=== PATIENT | female | born 1960 | race Caucasian/White ===

== ENCOUNTER → 2024-05-15 10:37 | Outpatient (BNVA) | payer BC, SELFPAY | PROVIDERS: Family Provider Nurse Practitioner; PCP Nurse Practitioner; Visit Provider Specialist | DX: S89.92XA Unspecified injury of left lower leg, initial encounter; Z46.89 Encounter for fitting and adjustment of other specified devices; X58.XXXA Exposure to other specified factors, initial encounter | CPT/HCPCS: 73560; 73565 ==

== ENCOUNTER 2024-05-15 12:15 | Outpatient (CLI) | payer BC, SELFPAY | END 2024-05-15 12:16 | disposition home or self-care (01) | LOC: SPT 12:16 | PROVIDERS: Family Provider Nurse Practitioner; PCP Nurse Practitioner; Visit Provider Specialist | DX: Z46.89 Encounter for fitting and adjustment of other specified devices (principal); S89.92XA Unspecified injury of left lower leg, initial encounter; X58.XXXA Exposure to other specified factors, initial encounter | CPT/HCPCS: L1851 ==

== ENCOUNTER → 2024-06-21 15:10 | Outpatient (BNVA) | payer BC, SELFPAY | PROVIDERS: Family Provider Nurse Practitioner; PCP Nurse Practitioner; Visit Provider Internal Medicine Cardiovascular Disease | DX: R07.9 Chest pain, unspecified (principal) | CPT/HCPCS: 93005 ==

== ENCOUNTER 2024-07-17 13:28 | Outpatient (CLI) | payer BC, SELFPAY ==
--- NOTE | 2024-07-17 14:00 | CT_ITS ---
WS: [id number] CT LEFT KNEE, NONCONTRAST [facility] TECHNIQUE: Noncontrast CT of the LEFT knee to include the LEFT hip and ankle. CLINICAL INFORMATION: per [facility] protocol DLP: 1030.[address] scans at [facility] use at least one of these dose optimization techniques: automated exposure control; mA and/or kV adjustment per patient size (includes targeted exams where dose is matched to clinical indication); or iterative reconstruction. FINDINGS: Advanced tricompartment arthritis LEFT knee. Hypertrophic changes along the joint line. Hypertrophic patella. Distal quadriceps tendon enthesophyte. Osteopenia. Joint arthritis sacroiliac joints with sclerosis. Fat-containing LEFT inguinal hernia with LEFT inguinal hernia repair. Tubal ligation clips. Small suprapatellar effusion. CT/CT knee LT [facility] [id number] IMPRESSION: Images obtained for preoperative purposes.
== END 2024-07-17 13:29 | disposition home or self-care (01) ==
PROVIDERS: Family Provider Nurse Practitioner; PCP Nurse Practitioner; Visit Provider Specialist
DX: M17.12 Unilateral primary osteoarthritis, left knee (principal); R93.6 Abnormal findings on diagnostic imaging of limbs; M76.9 Unspecified enthesopathy, lower limb, excluding foot; M46.1 Sacroiliitis, not elsewhere classified; M85.88 Other specified disorders of bone density and structure, other site; K40.90 Unilateral inguinal hernia, without obstruction or gangrene, not specified as recurrent
CPT/HCPCS: 73700

== ENCOUNTER → 2024-07-31 09:53 | Outpatient (BNVA) | payer BC, SELFPAY | PROVIDERS: PCP Nurse Practitioner; Visit Provider Family Medicine | DX: Z01.818 Encounter for other preprocedural examination (principal) | CPT/HCPCS: 80053; 81003; 83036; 85025 ==

== ENCOUNTER 2024-08-01 14:09 | Observation (INO) | payer BC, SELFPAY ==
[2024-08-01] VITALS (20 sets, daily range): BP systolic 112–163; BP diastolic 63–94; PULSE 68–80; RESP 15–20; TEMP 36.6–36.8; O2SAT 92–100; BMI 29.9
[2024-08-01 10:40] LABS: Glucose Point of Care 126 mg/dL (70-110)
[2024-08-01 10:43] LABS: Bacteria Urine None Seen /hpf; RBC Urine 0-2 /hpf (0-2); Squamous Epithelial Cell Urine 0-5 /hpf (0-5); WBC Urine 0-5 /hpf (0-5)
[2024-08-01 10:47] LABS: Bilirubin Urine Neg (Negative); Blood Urine Neg (Negative); Glucose Urine UA Norm (Normal); Ketones Urine Negative (Negative); Leukocyte Esterase Urine Negative (Negative); Nitrate Urine Negative (Negative); Protein Urine Neg (Negative); Specific Gravity, Urine 1.025 (1.005-1.030); Urine Appearance Clear (CLEAR); Urine Color Yellow (Yellow); Urobilinogen Urine Neg (Negative); pH Urine 5 (5-7)
--- NOTE | 2024-08-01 11:11 | W.PM.OPSUD ---
Surgery/Procedure H&P Update DATE OF PROCEDURE: August 01, 2024 DATE H&P PERFORMED: 07/25/24 H&P UPDATE INFORMATION: I have reviewed H&P completed within last 30 days, I have examined patient prior to procedure, No changes to prior documentation, H&P is in [facility] EMR on date indicated and Risks and benefits of the procedure reviewed PREOP DIAGNOSIS: Primary osteoarthritis left knee PLANNED PROCEDURE: Operation Date: 08/01/24 12:10 Proposed Procedures p Simon Robot Total Knee Arthroplasty(Left) - María Hammer MD Related Problem List Diagnoses (1) Primary osteoarthritis of left knee:
[2024-08-01] MEDS: sodium chloride 0.9% 1,000 ML 30 ML IV (11:45)
[2024-08-01] MEDS: acetaminophen 1,000 MG/100 ML PIGGYBACK 400 MG IV ×2 (11:48→17:25)
--- NOTE | 2024-08-01 12:16 | ANES.PREANE2 ---
Pre-Anesthetic Assessment Height/Weight: Height 5 ft 8 in Weight 197 lb O2 Del Method Room Air 08/01/24 10:08 Preop Diagnosis: Primary osteoarthritis left knee Operation Date: 08/01/24 12:10 Proposed Procedures p Simon Robot Total Knee Arthroplasty(Left) - María Hammer MD Was Beta Cecil taken within 24 hours: N/A Was Clonidine taken within 24 hours: N/A Last intake: Intake Last Liquid Date 07/31/24 Last Liquid Time 22:00 Last Solid Date 07/31/24 Last Solid Time 19:00 Social Tobacco and No tobacco Exam alert, oriented x 3, clear to auscultation bilaterally and regular rate & rhythm Airway Submandibular: within normal limits Cervical ROM: within normal limits Mallampati: Class III Comments: Comments: Edentulous. Green plaque on tongue Anesthetic Plan ASA status: 3 Anesthesia: General Other: No prior issues with anesthesia in the past NPO since yesterday History of MINOR without CPAP Current smoker CAD and CHF. Follows with cardiology. Stents placed 2005. Clear heart cath 2 years ago Patient has a loop recorder in place but it is not functional Labs 07/31/2024 reviewed and acceptable for procedure EKG sinus rhythm Plan for general anesthesia Medications/Allergies Home Medications ?Medication ?Instructions ?Recorded ?Confirmed ?Last Taken ?Type amitriptyline 50 mg tablet 50 mg PO DAILY 05/15/24 08/01/24 07/31/24 History atorvastatin 80 mg tablet 80 mg PO DAILY 05/15/24 08/01/24 07/31/24 History eszopiclone 2 mg tablet (Lunesta) 2 mg PO DAILY 05/15/24 08/01/24 07/31/24 History levothyroxine 88 mcg tablet 88 mcg PO DAILY 05/15/24 08/01/24 07/31/24 History (Levo-T) lidocaine 4 % topical patch 1 patch topical DAILY PRN Pain 05/15/24 07/31/24 07/29/24 History polysaccharide iron complex 150 mg 150 mg PO DAILY 05/15/24 08/01/24 07/11/24 History iron capsule potassium chloride 20 mEq 20 meq PO BID 05/15/24 08/01/24 07/31/24 History tablet,extended release trazodone 100 mg tablet 100 mg PO DAILY 05/15/24 08/01/24 07/31/24 History medial retail security professional brace, left #1 ea 05/16/24 06/21/24 Unknown Rx alprazolam 0.5 mg tablet 0.5 mg PO TID PRN Anxiety 06/21/24 07/31/24 07/30/24 History aspirin 81 mg tablet,delayed 324 mg PO DAILY 06/21/24 07/31/24 07/24/24 History release (Adult Aspirin Regimen) clopidogrel 75 mg tablet 75 mg PO DAILY #90 tabs 06/21/24 07/31/24 07/26/24 Rx diltiazem HCl 120 mg 120 mg PO DAILY #90 caps 06/21/24 08/01/24 07/31/24 Rx capsule,extended release 24 hr furosemide 20 mg tablet 20 mg PO BID PRN swelling 06/21/24 08/01/24 07/31/24 History nitroglycerin 0.4 mg sublingual 0.4 mg sublingual Q5M PRN chest 06/21/24 07/31/24 Unknown Rx tablet pain #25 tabs nitroglycerin 0.4 mg/hr 1 patch transdermal DAILY #30 ea 06/21/24 08/01/24 07/31/24 Rx transdermal 24 hour patch (Nitro-Dur) omeprazole 20 mg capsule,delayed 20 mg PO DAILY 06/21/24 08/01/24 07/31/24 History release empagliflozin 10 mg tablet 10 mg PO DAILY #90 tabs 06/28/24 08/01/24 06/03/24 Rx Allergies Allergy/AdvReac Type Severity Reaction Status Date / Time celecoxib (From Celebrex) Allergy Intermediate rash Verified 08/01/24 10:14 ciprofloxacin (From Cipro) Allergy Intermediate rash Verified 08/01/24 10:14 ketorolac Allergy Intermediate rash Verified 08/01/24 10:14 pregabalin (From Lyrica) Allergy Intermediate Stuttering Verified 08/01/24 10:14 rubber, unspecified Allergy Intermediate blisters Verified 08/01/24 10:14 sulfamethoxazole (From Allergy Intermediate rash Verified 08/01/24 10:14 Sulfamethoxazole-Trimethoprim) tramadol Allergy Intermediate blisters Verified 08/01/24 10:14 trimethoprim (From Allergy Intermediate rash Verified 08/01/24 10:14 Sulfamethoxazole-Trimethoprim) adhesive tape Allergy Mild ADR-Itching Verified 08/01/24 10:14 nalbuphine Allergy Mild ADR-Itching Verified 08/01/24 10:14 iodine Allergy blisters Verified 08/01/24 10:14 mildew prevention chemicals Allergy Intermediate blisters Uncoded 08/01/24 10:14 dark dyes Allergy blisters Uncoded 08/01/24 10:14 Current Medications Generic Name Dose Route Start Last Admin Trade Name Freq PRN Reason Stop Dose Admin Sodium Chloride 1,000 mls @ 30 mls/hr 08/01/24 11:00 08/01/24 11:45 Sodium Chloride 0.9% IV 08/02/24 10:59 30 mls/hr .Q24H [place] Administration PFSH Anesthesia Medical History CHF (congestive heart failure) COPD (chronic obstructive pulmonary disease) CAD (coronary artery disease) of artery bypass graft Family History Father CAD (coronary artery disease) Diabetes Sister CAD (coronary artery disease) Mother Cancer Social History Smoking and tobacco/nicotine status: current every day tobacco/nicotine user e-cigarettes Alcohol intake: current Data Anesthesia Urine 08/01/24 Range/Units 10:08 Urine Color Yellow (Yellow) Urine Appearance Clear (CLEAR) Urine pH 5 (5-7) Ur Specific [place] 1.025 (1.005-1.030) Urine Protein Neg (Negative) Urine Glucose (UA) Norm (Normal) Urine Ketones Negative (Negative) Urine Nitrate Negative (Negative) Urine Bilirubin Neg (Negative) Ur Leukocyte Esterase Negative (Negative) Urine RBC 0-2 (0-2) /hpf Urine WBC 0-5 (0-5) /hpf Cardiac Studies: No Data to Display
[2024-08-01] MEDS: ceFAZolin 2,000 mg SDV 2000 MG IVP ×2 (12:35→21:25)
[2024-08-01] MEDS: tranexamic acid 1,000 mg/10mL SDV 1000 MG IV (13:03)
[2024-08-01] MEDS: sodium chloride 0.9% 50 mL Bag XX (13:33)
[2024-08-01] MEDS: BUPivacaine 0.5% INJ 30 mL 20 ML INJECTION (13:34)
[2024-08-01] MEDS: VANCOMYCIN ADD-Vantage 1,000 MG VIAL 1000 MG XX (13:35)
[2024-08-01] MEDS: BUPivacaine liposome 13.3 mg/mL SDV 20 mL 266 MG INFILTRATI (13:35)
[2024-08-01] MEDS: ceFAZolin 2,000 mg SDV 2000 MG IRRIGATION (13:36)
--- NOTE | 2024-08-01 14:57 | PM.OP ---
Operative Report Date of procedure: August 01, 2024 Pre-op diagnosis: Primary osteoarthritis left knee Post-op diagnosis: Primary osteoarthritis left knee Post-op findings: Severe degenerative osteoarthritis left knee with varus deformity Procedure done: Left total knee arthroplasty with Simon guidance Implants: The [place] total knee system with a size 3 triathlon beaded cruciate retaining femur left, a triathlon titanium tibial component size 3 beaded, a triathlon X3 tibial bearing CS insert size 3 X 9 mm and a beaded triathlon titanium asymmetric patella size 32 x 10 mm Specimens removed/disposition: Bone, disposed of Pathology: None Surgeon: María Hammer MD Sort Line Worker: Tali Chou, nurse practitioner who services were required for retraction, exposure, closure, and completion of the surgical procedure Anesthesia: General (Intubated, ASA 3) Estimated blood loss (mL): 250 Tourniquet time (min): 0 (Not utilized) IV fluids (mL): 1,500 Urine output (mL): 250 Complications: None Findings: Severe degenerative osteoarthritis with varus compartment large osteophyte Condition: stable Disposition: PACU (Then admit under observation status for pain management and rehabilitation) Brief History: This 63-year-old woman presented to the clinic complaining of severe left knee pain. She had x-ray findings of significant degenerative osteoarthritis and worsening pain and symptoms. She also had limitations in her activities of daily living. After discussion, the patient wished to proceed with left total knee arthroplasty. Risks and complications were explained to her. Consents were signed and questions were answered. Procedure: The patient was brought to the operating theater, and after undergoing adequate general anesthesia intubated, ASA 3, the left lower extremity was prepped with ChloraPrep and draped in usual fashion following placement of a tourniquet high on the leg. The leg was then draped free. Tourniquet was placed on the leg but was not elevated throughout the surgical procedure. Following exposure of the site of surgery, a surgical pause was performed. At the time of the surgical pause, we confirmed the site and side of surgery. Additionally, we confirmed the appropriate and timely administration of preoperative antibiotics, Ancef 2 g. Tranexamic acid 1 g was given preoperatively and will be given again on the floor for 1 dose postoperatively. The availability of equipment was confirmed, and the patient's identity was verbalized as well. Following the surgical pause, an incision was made centering over the patella continuing proximally and distally as necessary to allow access to the knee joint. Dissection continued through skin and soft tissues using a scalpel. Hemostasis was obtained using electrocautery. The skin incision was followed by a median parapatellar arthrotomy. The leg was extended and the patella was able to be displaced laterally. Appropriate arrays and markers were placed in appropriate position for use of the [facility]. Preoperative planning had been accomplished and was discussed in detail with the [facility] cash application representative. Intraoperative mapping of the femur and tibia was accomplished after the arrays were placed. Once we had accomplished the Simon mapping, we began the appropriate resections for placement of the prosthesis. The plan was for a cruciate retaining left total knee arthroplasty. Once appropriate mapping had been accomplished retraction was established using manual retraction by the [facility] leg positioner and retractors. The knee was evaluated. There was eburnation particularly of the medial femoral condyle.? There were large osteophytes circumferentially about the trochlear groove as well as the patella and medial tibial plateau.? After balancing the knee within the Simon program, the appropriate bone resection was accomplished. Initial resection was accomplished on the tibia followed by appropriate resections on the femur. We had performed a medial release at the beginning of the procedure to allow for placement of the array. Proximal tibia was evaluated and it was felt that appropriate size for the tibia was a size 3, and appropriate femoral size was a size 3. A trial reduction was accomplished after osteophytes had been removed, the medial and lateral meniscus were excised, and bone cuts had been accomplished as above. We had removed the anterior cruciate ligament at the beginning of the case and preserved the posterior cruciate ligament. Trial reduction was accomplished with a size 3 femoral cruciate retaining component and a size 3 tibia with a CS tibial bearing insert which was 9 mm in thickness. Initial trial reduction demonstrated that the knee had excellent stability, full extension, and full flexion. The patient was hyperextended preoperatively, but she had full extension at the time of this implant. The trial components were removed after the femur had been drilled. Prior to removal of the tibial tray which had been pinned in position with appropriate rotation as determined by the Simon plan, we broached the tibia. Subsequently, the 4 drill holes were made for the prosthetic component. All trial components had been removed, and the wound was irrigated. Plans were made for insertion of the prosthetic components. Prior to this, the patella was manually prepared. After resection of the articular surface freehand due to the thinness of the patella, it was measured and measured a 32 mm patella. We resected the articular surface of the patella utilizing the appropriate jig, and patellar height was restored with the patellar component. Once again, the wound was irrigated. The Tritanium tibia was impacted into position.? The beaded femur was then impacted into position in a cementless fashion. The CS tibial insert was placed prior to placement of the femoral component. The patella was pressed into position with a patellar clamp.? Exparel was injected prior to placement of the components. The knee was then copiously irrigated with betadine and saline and suctioned dry. Attention was then directed to closure. Closure was accomplished with 0 Vicryl in the fascial tissues followed by a running #1 strata fix 1 from proximal to distal and 1 from distal to proximal.? This was followed by Surgiflo and vancomycin powder. Subcutaneous tissues were closed with 2-0 Monocryl strata fix, and the skin was closed in a running subcuticular fashion with 3-0 Monocryl strata fix.? A sterile dressing was then placed consisting of Dermabond Prineo, OpSite, sterile soft roll including over the foot, and an Santiago wrap. The patient was returned the Recovery Room in a satisfactory condition. X-rays were obtained and reviewed there.? The patient will be discharged to the floor for postoperative rehabilitation and pain management. Related Problem List Diagnoses (1) Primary osteoarthritis of left knee:
[2024-08-01] MEDS: ondansetron 2 mg/ML SDV 2 mL 4 MG IVP (15:22)
--- NOTE | 2024-08-01 15:24 | XR_ITS ---
WS: [id number] Exam: XR knee LT 1-2V [id number] Date/Time of Exam: 08/01/2024 3:24 PM Reason For Exam: Status post total knee arthroplasty Total knee arthroplasty is in place in excellent position. Postoperative changes in the soft tissues. XR/XR knee LT 1-2V 39120 IMPRESSION: 1. Total knee replacement in excellent position.
[2024-08-01] MEDS: meperidine 50 mg/mL INJ 12.5 MG IVP (15:35)
[2024-08-01] MEDS: diphenhydrAMINE 50 mg/mL SDV 1mL 12.5 MG IVP (15:57)
--- NOTE | 2024-08-01 16:09 | ANE.PACU2 ---
Inpatient post-anesthesia follow up: Airway intact: Yes Vital signs: Temperature 97.5 F Pulse Rate 79 Respiratory Rate 18 Blood Pressure 122/75 Pulse Oximetry 96 Oxygen Delivery Me thod Room Air Oxygen Flow Rate 2 Fraction of Inspir ed Oxygen Hydration adequate: Yes Nausea and vomiting: No Pain level: 1 Mental status: Baseline
[2024-08-01 16:54] LABS: Glucose Point of Care 151 mg/dL (70-110)
[2024-08-01] MEDS: sennosides-docusate Tablet 2 TAB PO (17:23)
[2024-08-01] MEDS: potassium chloride ER 20 mEq Tablet PO (17:23)
[2024-08-01] MEDS: calcium carbonate 500 mg Chew Tablet 1000 MG PO (17:23)
[2024-08-01] MEDS: iron polysaccharide complex 150 mg Capsule PO (17:23)
[2024-08-01] MEDS: chlorhexidine gluconate 0.12% Btl 473 mL 30 ML MUCOUS MEM ×2 (17:24→21:26)
[2024-08-01] MEDS: oxyCODONE 5 mg IR Tab/Cap PO ×2 (17:24→21:24)
[2024-08-01] MEDS: mupirocin oint 22 gm 1 APPLIC NASAL (17:25)
[2024-08-01 20:56] LABS: Glucose Point of Care 218 mg/dL (70-110)
[2024-08-01] MEDS: FUROsemide 20 mg Tablet PO (23:55)
[2024-08-02] VITALS (8 sets, daily range): BP systolic 111–148; BP diastolic 65–75; PULSE 79–101; RESP 17–18; TEMP 36.4–36.8; O2SAT 96–97
[2024-08-02] MEDS: acetaminophen 1,000 MG/100 ML PIGGYBACK 400 MG IV ×2 (00:09→08:45)
[2024-08-02] MEDS: oxyCODONE 5 mg IR Tab/Cap PO ×3 (01:27→13:14)
[2024-08-02] MEDS: ondansetron 2 mg/ML SDV 2 mL 4 MG IVP (01:32)
[2024-08-02 04:56] LABS: Basophils % 0.2 %; Hematocrit 28.8 % (36-47); Lymphocytes # 1.1 10^3/uL (0.8-4.8); Mean Corpuscular HGB Conc 30.9 g/dL (30-55); Mean Corpuscular Hemoglobin 25.4 pg (27-33); Mean Corpuscular Volume 82.3 fl (85-98); Mean Platelet Volume 10.3 fL (7.4-10.4); Monocytes % 7.3 %; Neutrophils % 84.2 %; Nucleated Red Blood Cells % 0 %; Platelet Count 300 10^3/cmm (157-399); Red Cell Distribution Width 13.2 % (12.1-15.1); White Blood Count 14.13 10^3/uL (3.29-11.43)
[2024-08-02 05:21] LABS: Anion Gap 16.3 (5-19); Blood Urea Nitrogen 12 mg/dL (8-23); Calcium 8.7 mg/dL (8.5-10.5); Carbon Dioxide 20 mmol/L (22-29); Chloride 105 mmol/L (98-107); Creatinine Clr Calc Pharmacy 89.0317; Glomerular Filtration Rate 72.7 mL/min (90-130); Glucose 161 mg/dL (65-115); Osmolality Calculated 287 mOsm/kg (285-295); Potassium 4.3 mmol/L (3.5-5.1); Sodium 137 mmol/L (136-145)
[2024-08-02] MEDS: metoclopramide 5 mg/mL SDV 2 mL 10 MG IV (05:30)
[2024-08-02] MEDS: ceFAZolin 2,000 mg SDV 2000 MG IVP ×2 (05:31→13:15)
[2024-08-02 06:30] LABS: Glucose Point of Care 147 mg/dL (70-110)
[2024-08-02] MEDS: potassium chloride ER 20 mEq Tablet PO (08:44)
[2024-08-02] MEDS: levothyroxine 88 mcg Tablet PO (08:44)
[2024-08-02] MEDS: trazodone 100 mg Tablet PO (08:44)
[2024-08-02] MEDS: dilTIAZem ER (24HR) 120 mg Capsule PO (08:44)
[2024-08-02] MEDS: pantoprazole DR 40 mg Tablet PO (08:44)
[2024-08-02] MEDS: cholecalciferol (vitamin D3) 1,000 unit Tablet 1000 UNIT PO (08:44)
[2024-08-02] MEDS: iron polysaccharide complex 150 mg Capsule PO (08:44)
[2024-08-02] MEDS: atorvastatin 40 mg Tablet 80 MG PO (08:44)
[2024-08-02] MEDS: calcium carbonate 500 mg Chew Tablet 1000 MG PO (08:44)
[2024-08-02] MEDS: amitriptyline 25 mg Tablet 50 MG PO (08:44)
[2024-08-02] MEDS: sennosides-docusate Tablet 2 TAB PO (08:45)
[2024-08-02] MEDS: aspirin 81 mg EC Tablet 324 MG PO (08:45)
[2024-08-02] MEDS: clopidogrel 75 mg Tablet PO (08:45)
[2024-08-02] MEDS: multivitamin therapeutic Tablet 1 TAB PO (08:45)
[2024-08-02] MEDS: chlorhexidine gluconate 0.12% Btl 473 mL 30 ML MUCOUS MEM ×2 (08:46→13:16)
[2024-08-02] MEDS: mupirocin oint 22 gm 1 APPLIC NASAL (08:46)
--- NOTE | 2024-08-02 09:33 | PC.CHAP ---
Pastoral Care Encounter/Spiritual Assessment Type of Contact [] Declined bog cutter visit [] Patient/Family/Request visit [] Outpatient visit [] Follow-up visit [] Physician referral [] Code/Alert [x] Routine visit [] Staff referral [] Actively dying [] Patient sleeping [] Family support [] [] Out of room [] Palliative care [] [] Receiving care in room [] Pre-surgical visit [] Trauma [] Long length of stay [] ICU visit [] Other: Relational/Emotional Strength [x] Patient feels connected with others/family/visitors/staff [] Distress [] Loneliness/isolation [] Abandonment Spirituality of Patient [x] Person of Maisha [] Attends Congregation of their Maisha [x] Believes in Prayer [] Reads Bible or Hoahaoism materials [] There are Spiritual issues to be addressed [employer] Interventions [x] Prayer [x] Active listening [] Non-anxious presence [x] Spiritual/emotional support [] Crisis/trauma care [] Spiritual counseling [] Bereavement support [] Provided bereavement packet [] Provided Bible/devotional materials [] Provided toy/stuffed animal, coloring book to patient or family member [] Provided Communion [] Anointing/[place] [] Salvation [x] Completed spiritual assessment [] Other: Impact on Illness or Injury [] Angry [] Fearful [] Anxious [] Often cries [] Exhaustion [] Unable to work [] Unable to attend latter-day [] Unable to walk/stand [] Unable to read [] Unable to drive [] Unable to eat/drink [] Unable to sleep [] Unable to be with family [] Patient intubated [] Other: Summary Time spent with patient 5 min
[2024-08-02 10:57] LABS: Glucose Point of Care 239 mg/dL (70-110)
--- NOTE | 2024-08-02 13:07 | P.DS_ITS ---
Discharge Providers Date of Admission: 08/01/24 14:09 Date of Discharge: August 02, 2024 Attending Provider at Admission: María Hammer MD Attending Provider at Discharge: María Hammer MD Primary Care Provider: Rolando Wilder MD Diagnoses at Discharge Discharge Diagnosis (1) Primary osteoarthritis of left knee: Status: Acute (2) Status post total left knee replacement not using cement: Status: Acute Permanent problem details: Date of procedure: August 01, 2024 Diagnosis: Primary osteoarthritis left knee Procedure done: Left total knee arthroplasty with Simon guidance Implants: The [place] total knee system with a size 3 triathlon beaded cruciate retaining femur left, a triathlon titanium tibial component size 3 beaded, a triathlon X3 tibial bearing CS insert size 3 X 9 mm and a beaded triathlon titanium asymmetric patella size 32 x 10 mm Reason for Visit Reason for Visit: M17.12 Brief History: This 63-year-old woman presented to the clinic complaining of severe left knee pain. She had x-ray findings of significant degenerative osteoarthritis and worsening pain and symptoms. She also had limitations in her activities of daily living. After discussion, the patient wished to proceed with left total knee arthroplasty. Risks and complications were explained to her. Consents were signed and questions were answered. Hospital Course Hospital Course Patient was admitted under observation status following left total knee arthroplasty. Her postoperative course was uneventful. She worked with physical therapy and was felt safe for discharge to home. Dressings were removed, there is minimal ecchymosis and no evidence of DVT. The OpSite dressing was left in place. The patient was felt to be independent and safe and will be discharged home to follow-up with me in the office as scheduled. Physical Exam Const: COMMON NORMALS: no acute distress, average body habitus, patient oriented x3 and alert GENERAL APPEARANCE: cooperative and comfortable ORIENTATION/CONSCIOUSNESS: Yes awake HENMT: COMMON NORMALS: normocephalic and atraumatic HEAD & SCALP: normocephalic and atraumatic Eye: GENERAL EYE: appearance normal, both eyes and all related structures Chest: COMMONS NORMALS: normal inspection of the chest Resp: COMMON NORMALS: normal respiratory effort EFFORT & INSPECTION: Yes able to speak in complete sentences and Yes symmetric chest movement Extremity: LEFT LOWER EXTREMITY: Yes knee joint (Large outer dressing removed. Underdressing dry and intact) Left knee: Yes inspection (Minimal to no ecchymosis), Yes palpation (Minimal discomfort), Yes ROM (Not evaluated) and Yes neurovascular exam (Intact distally with no evidence of DVT) Neuro: COMMON NORMALS: patient oriented x3 SENSORIUM/ORIENTATION: Yes alert Psych: COMMON NORMALS: mental status grossly normal APPEARANCE: Yes grossly normal ATTITUDE: Yes calm and Yes engaged ATTENTION/CONCENTRATION: Yes attention grossly intact Skin: COMMON NORMALS: no rashes or lesions noted GENERAL SKIN EXAM: no rashes or lesions noted Urinary Catheter Management: Mack: Cath Placed During This Visit: yes, but has since been removed by the nurse Reason for Continuing Indwelling Catheter: Decision to DC Catheter Urinary Catheter Date of Insertion: 08/01/24 Urinary Catheter Time of Insertion: 10:05 Date Urinary Catheter Removed: 08/02/24 Time Urinary Catheter Discontinued: 05:52 Discharge Data Studies Completed and Pending Completed Studies During Hospitalization Category Date Time Status XR knee LT 1-2V [id number] Urgent Exams 08/01/24 15:24 Completed Radiology Impressions Knee X-Ray 08/01/24 15:24 IMPRESSION: 1. Total knee replacement in excellent position. Laboratory Results WBC 14.13 10^3/uL (3.29-11.43) H 08/02/24 04:14 RBC 3.50 10^6/uL (3.85-5.65) L 08/02/24 04:14 Hgb 8.90 g/dL (11.27-16.99) L 08/02/24 04:14 Hct 28.8 % (36-47) L 08/02/24 04:14 MCV 82.3 fl (85-98) L 08/02/24 04:14 MCH 25.4 pg (27-33) L 08/02/24 04:14 MCHC 30.9 g/dL (30-55) 08/02/24 04:14 RDW 13.2 % (12.1-15.1) 08/02/24 04:14 Plt Count 300 10^3/cmm (157-399) 08/02/24 04:14 MPV 10.3 fL (7.4-10.4) 08/02/24 04:14 Neut % (Auto) 84.2 % 08/02/24 04:14 Lymph % (Auto) 8.0 % 08/02/24 04:14 [place] % (Auto) 7.3 % 08/02/24 04:14 Eos % (Auto) 0.0 % 08/02/24 04:14 Baso % (Auto) 0.2 % 08/02/24 04:14 Neut # (Auto) 11.90 10^3/uL (1.8-7.7) H 08/02/24 04:14 Lymph # (Auto) 1.1 10^3/uL (0.8-4.8) 08/02/24 04:14 [place] # (Auto) 1.0 10^3/uL (0.2-0.9) H 08/02/24 04:14 Eos # (Auto) 0.0 10^3/uL (0.0-0.8) 08/02/24 04:14 Baso # (Auto) 0.0 10^3/uL (0.0-0.1) 08/02/24 04:14 Nucleated RBC % (auto) 0 % 08/02/24 04:14 Nucleated RBCs # 0.0 /100WBC 08/02/24 04:14 Sodium 137 mmol/L (136-145) 08/02/24 04:14 Potassium 4.3 mmol/L (3.5-5.1) 08/02/24 04:14 Chloride 105 mmol/L (98-107) 08/02/24 04:14 Carbon Dioxide 20 mmol/L (22-29) L 08/02/24 04:14 Anion Gap 16.3 (5-19) 08/02/24 04:14 BUN 12 mg/dL (8-23) 08/02/24 04:14 Creatinine 0.8 mg/dL (0.5-0.9) 08/02/24 04:14 GFR Calculation 72.7 mL/min (90-130) L 08/02/24 04:14 Glucose 161 mg/dL (65-115) H 08/02/24 04:14 POC Glucose 239 mg/dL (70-110) H 08/02/24 10:40 Calculated Osmolality 287 mOsm/kg (285-295) 08/02/24 04:14 Calcium 8.7 mg/dL (8.5-10.5) 08/02/24 04:14 Urine Color Yellow (Yellow) 08/01/24 10:08 Urine Appearance Clear (CLEAR) 08/01/24 10:08 Urine pH 5 (5-7) 08/01/24 10:08 Ur Specific [place] 1.025 (1.005-1.030) 08/01/24 10:08 Urine Protein Neg (Negative) 08/01/24 10:08 Urine Glucose (UA) Norm (Normal) 08/01/24 10:08 Urine Ketones Negative (Negative) 08/01/24 10:08 Urine Blood Neg (Negative) 08/01/24 10:08 Urine Nitrate Negative (Negative) 08/01/24 10:08 Urine Bilirubin Neg (Negative) 08/01/24 10:08 Urine Urobilinogen Neg mg/dL (Negative) 08/01/24 10:08 Ur Leukocyte Esterase Negative (Negative) 08/01/24 10:08 Urine RBC 0-2 /hpf (0-2) 08/01/24 10:08 Urine WBC 0-5 /hpf (0-5) 08/01/24 10:08 Ur Squamous Epith Cells 0-5 /hpf (0-5) 08/01/24 10:08 Amorphous Sediment Not Reportable 08/01/24 10:08 Urine Bacteria None seen /hpf (NONE) 08/01/24 10:08 Hyaline Casts 0.40 /lpf 08/01/24 10:08 Vitals Last Vital Signs Temp 97.5 F L 08/02/24 11:30 Pulse 79 08/02/24 11:30 Resp 17 08/02/24 11:30 BP 122/75 08/02/24 11:30 Pulse Ox 96 08/02/24 11:30 O2 Del Method Room Air 08/02/24 11:30 O2 Flow Rate 2 08/01/24 19:49 Discharge Plan Discharge Patient Disposition: Home Health Service Condition: Stable Prescriptions: New aspirin 81 mg Tablet,Delayed Release (Dr/Ec) 324 mg PO DAILY 30 Days Qty: 0 0RF acetaminophen 500 mg Tablet 1,000 mg PO Q8H 15 Days Qty: 0 0RF oxycodone 5 mg Tablet 5 mg PO Q4H PRN (Reason: Moderate To Severe Pain) 7 Days Qty: 20 0RF Continued omeprazole 20 mg capsule,delayed release(DR/EC) 20 mg PO DAILY furosemide 20 mg tablet 20 mg PO BID PRN (Reason: swelling) clopidogrel 75 mg tablet 75 mg PO DAILY Qty: 90 3RF diltiazem HCl 120 mg capsule,extended release 24hr 120 mg PO DAILY Qty: 90 3RF nitroglycerin [Nitro-Dur] 0.4 mg/hr patch 24 hour 1 patch transdermal DAILY Qty: 30 6RF Rx Instructions: allow nitrate-free interval of approx. 10-12 hrs per 24-hour period nitroglycerin 0.4 mg tablet, sublingual 0.4 mg sublingual Q5M PRN (Reason: chest pain) Qty: 25 2RF Rx Instructions: do not exceed 3 doses per episode atorvastatin 80 mg tablet 80 mg PO DAILY potassium chloride 20 mEq tablet extended release 20 meq PO BID amitriptyline 50 mg tablet 50 mg PO DAILY polysaccharide iron complex 150 mg iron capsule 150 mg PO DAILY levothyroxine [Levo-T] 88 mcg tablet 88 mcg PO DAILY eszopiclone [Lunesta] 2 mg tablet 2 mg PO DAILY trazodone 100 mg tablet 100 mg PO DAILY lidocaine 4 % adhesive patch,medicated 1 patch topical DAILY PRN (Reason: Pain) alprazolam 0.5 mg tablet 0.5 mg PO TID PRN (Reason: Anxiety) empagliflozin 10 mg tablet 10 mg PO DAILY Qty: 90 3RF Held aspirin [Adult Aspirin Regimen] 81 mg tablet,delayed release (DR/EC) 324 mg PO DAILY Hold Instructions: Resume on 09/01/24. Resume after 30 days of full-strength aspirin Discharge Orders: Discharge Order (Routine); Ordered 08/02/24 Ordered By: María Hammer Other Ambulatory Orders: DME: Walker (Order) Location: None Selected Ordered By: María Hammer Referrals: María Hammer MD [Physician] - 08/16/24 11:00 am Discharge Diet: Advance as tolerated and Usual diet Discharge Activity: Increase activity as tolerated, Limit activity as instructed and As per PT/OT instructions Patient Instructions: Oxycodone, Rapid Release (By mouth), Acute Wound Care (DC), Total Knee Replacement (GEN), Opioid Safety, Post Anesthesia Care Activity Restrictions/Additional Instructions: Elevate and ice to left knee. Range of motion, gait training, and strengthening per physical therapy. Home physical therapy. Discharge Attestations Time Spent in Discharge Care*: greater than 30 min Specific Discharge Activities: educating patient, documenting/other paperwork and evaluating patient/reviewing data Quality Metrics Clinical Quality Measures [ No reported AMI, CVA or VTE this stay] Coding Level of Care Code Acute Code for Chg Fwd Diagnoses Primary osteoarthritis of left knee M17.12 Status post total left knee replacement not using cement Z96.652
== END 2024-08-02 14:35 | disposition home health service (06) ==
LOC: MEDSURG 14:09
PROVIDERS: Admitting Provider Specialist; PCP Family Medicine; Visit Provider Specialist
PROC: 8E0Y0CZ Robotic Assisted Procedure of Lower Extremity, Open Approach (ICD-10-PCS; CPT 27447; principal; 2024-08-01 12:10)
DX: M17.12 Unilateral primary osteoarthritis, left knee (principal); K21.9 Gastro-esophageal reflux disease without esophagitis; G47.33 Obstructive sleep apnea (adult) (pediatric); I25.10 Atherosclerotic heart disease of native coronary artery without angina pectoris; I50.9 Heart failure, unspecified; J44.9 Chronic obstructive pulmonary disease, unspecified; Z79.82 Long term (current) use of aspirin; M21.162 Varus deformity, not elsewhere classified, left knee; Z95.5 Presence of coronary angioplasty implant and graft; F17.290 Nicotine dependence, other tobacco product, uncomplicated
CPT/HCPCS: 27447; 20985; 36415; 36416; 51702; 73560; 80048; 81001; 82962; 85025; 97110; 97116; 97161; 97165; A4216; C1776; G0378; J0131; J0666; J0690; J1100; J1171; J1200; J2175; J2405; J2704; J2765; J3010; J3370; J3490; J7030; J9999

== ENCOUNTER → 2024-08-16 11:01 | Outpatient (BNVA) | payer BC, SELFPAY | PROVIDERS: PCP Family Medicine; Visit Provider Specialist | DX: Z96.652 Presence of left artificial knee joint (principal) | CPT/HCPCS: 73560; 73565 ==

== ENCOUNTER 2024-09-05 14:20 | Outpatient (CLI) | payer BC, SELFPAY ==
--- NOTE | 2024-09-05 15:00 | USCV_ITS ---
Tena Dears Age: 64 Gender: F : 1960 Exam Date: 09/05/2024 14:44 Ordering Phys: Holden Foley MD ([email or web address]) Technologist: Exam Location: [facility] Indication: CAD, Pre-op BP: 130 / 80 HR: 77 Rhythm: Sinus Technical Quality: Adequate MEASUREMENTS (Male / Female) Normal Values 2D ECHO LV Diastolic Diameter PLAX 3.6 cm 4.2 - 5.9 / 3.9 - 5.3 cm IVS Diastolic Thickness 1.2 cm 0.6 - 1.0 / 0.6 - 0.9 cm IVS Systolic Thickness 1.3 cm LVPW Diastolic Thickness 1.0 cm 0.6 - 1.0 / 0.6 - 0.9 cm LVPW Systolic Thickness 1.6 cm LVOT Diameter 2.0 cm LV Ejection Fraction 2D Teich 62.9 % LV Ejection Fraction MOD 4C 65.2 % LV Ejection Fraction MOD 2C 66.2 % LV Ejection Fraction 2C AL 66.8 % LA Diameter 3.8 cm RA Systolic Volume 4C AL 27.4 ml RA Systolic Volume 4C MOD 26.5 ml Aorta at Sinotubular Diameter 2.8 cm IVC Diameter 1.7 cm M-MODE LA Ao Ratio MM 1.4 AV Cusp Separation MM 2.1 cm DOPPLER AV Peak Velocity 175.0 cm/s LVOT Peak Velocity 119.0 cm/s AV Area Cont Eq vti 2.4 cm squared AV Area Cont Eq pk 2.1 cm squared MV Peak Velocity 106.0 cm/s MV Area PHT 6.1 cm squared Mitral E to A Ratio 0.7 TV Peak Velocity 193.5 cm/s TR Peak Velocity 217.0 cm/s TR Peak Gradient 18.8 mmHg TV Peak E Velocity 71.0 cm/s PV Peak Velocity 140.0 cm/s FINDINGS Left Ventricle Normal left ventricular size, systolic function and wall thickness, with no regional wall motion abnormalities. Left ventricular ejection fraction is estimated at 55-60%. Grade I/IV diastolic dysfunction (abnormal relaxation filling pattern), normal to mildly elevated filling pressures. Right Ventricle The right ventricle is normal in size and function. Right Atrium The right atrium is normal in size. Left Atrium The left atrium is normal in size. Mitral Valve Structurally normal mitral valve without significant stenosis or prolapse. There is no mitral regurgitation. Aortic Valve Mild aortic valve calcification. No aortic valve stenosis. Mild aortic valve regurgitation. Tricuspid Valve Trace tricuspid valve regurgitation. Pulmonic Valve Structurally normal pulmonic valve without significant stenosis. There is no pulmonic regurgitation. Pericardium Normal pericardium without effusion. Aorta Normal ascending aorta dimension. IVC The inferior vena cava appears normal. CONCLUSIONS Normal left ventricular size, systolic function and wall thickness, with no regional wall motion abnormalities. Left ventricular ejection fraction is estimated at 55-60%. Grade I/IV diastolic dysfunction (abnormal relaxation filling pattern), normal to mildly elevated filling pressures. Mild aortic valve calcification.Structurally normal mitral valve without significant stenosis or prolapse. There is no mitral regurgitation. No aortic valve stenosis. Mild aortic valve regurgitation. There is no pericardial effusion. Right atrial pressure is around 5 mm of mercury. Holden Foley MD (Electronically Signed) Final Date: 16 Sep 2024 16:26 S
== END 2024-09-05 14:21 | disposition home or self-care (01) ==
PROVIDERS: PCP Family Medicine; Visit Provider Internal Medicine Cardiovascular Disease
DX: I25.10 Atherosclerotic heart disease of native coronary artery without angina pectoris (principal); Z01.818 Encounter for other preprocedural examination; R93.1 Abnormal findings on diagnostic imaging of heart and coronary circulation; I35.8 Other nonrheumatic aortic valve disorders; I35.1 Nonrheumatic aortic (valve) insufficiency
CPT/HCPCS: 93306

== ENCOUNTER 2024-10-24 08:52 | Day surgery (SDC) | payer BC, SELFPAY ==
[2024-10-24 09:15] VITALS: BP 148/82; PULSE 100; RESP 16; TEMP 36.6; O2SAT 98
[2024-10-24 09:31] LABS: Hematocrit 33.0 % (36-47); Hemoglobin 9.10 g/dL (11.27-16.99); Mean Corpuscular HGB Conc 27.6 g/dL (30-55); Mean Corpuscular Hemoglobin 18.6 pg (27-33); Mean Corpuscular Volume 67.3 fl (85-98); Nucleated Red Blood Cells % 0 %; Platelet Count 422 10^3/cmm (157-399); Red Blood Count 4.90 10^6/uL (3.85-5.65); White Blood Count 6.24 10^3/uL (3.29-11.43)
--- NOTE | 2024-10-24 09:45 | ANES.PREANE2 ---
Pre-Anesthetic Assessment Height/Weight: Height 1.73 m Weight 92.986 kg Temp Pulse Resp BP Pulse Ox O2 Del Method 98 F 100 16 148/82 98 Room Air 10/24/24 09:15 10/24/24 09:15 10/24/24 09:15 10/24/24 09:15 10/24/24 09:15 10/24/24 09:15 Operation Date: 10/24/24 10:30 Proposed Procedures p EGD [id number] G0105, D509(Not Applicable) - Edwin Wallis MD s Colonoscopy(Not Applicable) - Edwin Wallis MD Familial anesthetic complications: None Was Beta Cecil taken within 24 hours: N/A Was Clonidine taken within 24 hours: N/A Last intake: Intake Last Liquid Date 10/23/24 Last Liquid Time 22:00 Last Solid Date 10/22/24 Last Solid Time 20:00 Social Alcohol (Special occ) and Tobacco (Vapes) Exam alert, oriented x 3, clear to auscultation bilaterally and regular rate & rhythm Airway Submandibular: within normal limits Cervical ROM: within normal limits Mallampati: Class II Comments: Comments: Edentulous History/ROS No significant history except as noted and No significant complaints Pulmonary Chronic Obstructive Pulmonary Disease, Exertional Dyspnea and Sleep Apnea (Does not use CPAP) CV/HEM Anemia, Coronary Artery Disease and Hypertension CONCLUSIONS Normal left ventricular size, systolic function and wall thickness, with no regional wall motion abnormalities. Left ventricular ejection fraction is estimated at 55-60%. Grade I/IV diastolic dysfunction (abnormal relaxation filling pattern), normal to mildly elevated filling pressures. Mild aortic valve calcification.Structurally normal mitral valve without significant stenosis or prolapse. There is no mitral regurgitation. No aortic valve stenosis. Mild aortic valve regurgitation. There is no pericardial effusion. Right atrial pressure is around 5 mm of mercury. 2006 stent x2 to LMA, last saw cardiology a few months ago, per patient she was given approval to stop anticoagulants for procedure. No new changes from cardiology None reported Hepatic None reported GI Peptic Ulcer Disease Metabolic Diabetes Mellitus, Hyperlipidemia and Thyroid Disease Musc/skel Lower Back Pain (Back surgery x3) and Osteoarthritis/DJD Neuropsych Anxiety, Depression and Neuropathy Anesthetic Plan ASA status: 3 Anesthesia: Anesthesia Evaluation, General and MAC Risk of > 500 ml blood loss (7ml/kg in children): No Medications/Allergies Home Medications ?Medication ?Instructions ?Recorded ?Confirmed ?Last Taken ?Type amitriptyline 50 mg tablet 50 mg PO DAILY 05/15/24 10/24/24 10/22/24 History atorvastatin 80 mg tablet 80 mg PO DAILY 05/15/24 10/24/24 10/22/24 History eszopiclone 2 mg tablet (Lunesta) 2 mg PO DAILY PRN Insomnia 05/15/24 10/24/24 10/20/24 History levothyroxine 88 mcg tablet 88 mcg PO DAILY 05/15/24 10/24/24 10/22/24 History (Levo-T) lidocaine 4 % topical patch 1 patch topical DAILY PRN Pain 05/15/24 10/24/24 09/24/24 History polysaccharide iron complex 150 mg 150 mg PO DAILY 05/15/24 10/24/24 10/22/24 History iron capsule potassium chloride 20 mEq 20 meq PO DAILY 05/15/24 10/24/24 10/22/24 History tablet,extended release trazodone 100 mg tablet 100 mg PO DAILY PRN Insomnia 05/15/24 10/24/24 10/22/24 History alprazolam 0.5 mg tablet 0.5 mg PO TID PRN Anxiety 06/21/24 10/24/24 10/23/24 History aspirin 81 mg tablet,delayed 324 mg PO DAILY 06/21/24 10/19/24 10/17/24 History release (Adult Aspirin Regimen) Held on 08/02/24. Instructions: Resume on 09/01/24. Resume after 30 days of full-strength aspirin clopidogrel 75 mg tablet 75 mg PO DAILY #90 tabs 06/21/24 10/24/24 10/19/24 Rx diltiazem HCl 120 mg 120 mg PO DAILY #90 caps 06/21/24 10/24/24 10/22/24 Rx capsule,extended release 24 hr furosemide 20 mg tablet 20 mg PO DAILY 06/21/24 10/24/24 10/22/24 History nitroglycerin 0.4 mg sublingual 0.4 mg sublingual Q5M PRN chest 06/21/24 10/24/24 Unknown Rx tablet pain #25 tabs nitroglycerin 0.4 mg/hr 1 patch transdermal DAILY #30 ea 06/21/24 10/24/24 10/10/24 Rx transdermal 24 hour patch (Nitro-Dur) losartan 50 mg tablet 50 mg PO DAILY 10/05/24 10/24/24 10/22/24 History pantoprazole 40 mg tablet,delayed 40 mg PO DAILY 10/05/24 10/24/24 10/22/24 History release Allergies Allergy/AdvReac Type Severity Reaction Status Date / Time celecoxib (From Celebrex) Allergy Intermediate rash Verified 10/05/24 10:06 ciprofloxacin (From Cipro) Allergy Intermediate rash Verified 10/05/24 10:06 ketorolac Allergy Intermediate rash Verified 10/05/24 10:06 pregabalin (From Lyrica) Allergy Intermediate Stuttering Verified 10/05/24 10:06 rubber, unspecified Allergy Intermediate blisters Verified 10/05/24 10:06 sulfamethoxazole (From Allergy Intermediate rash Verified 10/05/24 10:06 Sulfamethoxazole-Trimethoprim) tramadol Allergy Intermediate blisters Verified 10/05/24 10:06 trimethoprim (From Allergy Intermediate rash Verified 10/05/24 10:06 Sulfamethoxazole-Trimethoprim) adhesive tape Allergy Mild ADR-Itching Verified 10/05/24 10:06 nalbuphine Allergy Mild ADR-Itching Verified 10/05/24 10:06 iodine Allergy blisters Verified 10/05/24 10:06 mildew prevention chemicals Allergy Intermediate blisters Uncoded 10/05/24 10:06 dark dyes Allergy blisters Uncoded 10/05/24 10:06 Current Medications Generic Name Dose Route Start Last Admin Trade Name Freq PRN Reason Stop Dose Admin Sodium Chloride 1,000 mls @ 15 mls/hr 10/24/24 08:59 10/24/24 09:19 Sodium Chloride 0.9% IV 10/25/24 08:58 15 mls/hr .Q24H PRN Administration COLONOSCOPY FLUIDS PFSH Anesthesia Medical History CHF (congestive heart failure) COPD (chronic obstructive pulmonary disease) CAD (coronary artery disease) of artery bypass graft Family History Father CAD (coronary artery disease) Diabetes Sister CAD (coronary artery disease) Mother Cancer Social History Smoking and tobacco/nicotine status: current every day tobacco/nicotine user e-cigarettes Alcohol intake: current Data Anesthesia 10/24/24 09:17 10/24/24 09:17 Short CBC 10/24/24 Range/Units 09:17 WBC 6.24 (3.29-11.43) 10^3/uL Hgb 9.10 L (11.27-16.99) g/dL Hct 33.0 L (36-47) % MCV 67.3 L (85-98) fl Plt Count 422 H (157-399) 10^3/cmm Neut % (Auto) 64.7 % Neut # (Auto) 4.04 (1.8-7.7) 10^3/uL Cardiac Studies: Echocardiogram 09/05/24
[2024-10-24 09:51] LABS: Anion Gap 21.5 (5-19); Blood Urea Nitrogen 10 mg/dL (8-23); Calcium 10.1 mg/dL (8.5-10.5); Carbon Dioxide 20 mmol/L (22-29); Chloride 98 mmol/L (98-107); Creatinine Clr Calc Pharmacy 76.2921; Glucose 150 mg/dL (65-115); Osmolality Calculated 284 mOsm/kg (285-295); Potassium 3.5 mmol/L (3.5-5.1); Sodium 136 mmol/L (136-145)
--- NOTE | 2024-10-24 10:02 | W.PM.OPSUD ---
Surgery/Procedure H&P Update DATE OF PROCEDURE: October 24, 2024 DATE H&P PERFORMED: 10/05/24 H&P UPDATE INFORMATION: I have reviewed H&P completed within last 30 days, I have examined patient prior to procedure and No changes to prior documentation PLANNED PROCEDURE: Operation Date: 10/24/24 10:30 Proposed Procedures p EGD [id number] G0105, D509(Not Applicable) - Edwin Wallis MD s Colonoscopy(Not Applicable) - Edwin Wallis MD
[2024-10-24 10:31] VITALS: BP 99/60; PULSE 74; RESP 10; TEMP 36.2; O2SAT 94
[2024-10-24 10:45] VITALS: BP 107/73; PULSE 85; RESP 16; O2SAT 100
[2024-10-24 10:55] VITALS: BP 117/93; PULSE 79; RESP 18; O2SAT 100
== END 2024-10-24 11:10 | disposition home or self-care (01) ==
PROVIDERS: Student in an Organized Health Care Education/Training Program; PCP Family Medicine; Visit Provider Student in an Organized Health Care Education/Training Program
PROC: 0DJ08ZZ Inspection of Upper Intestinal Tract, Via Natural or Artificial Opening Endoscopic (ICD-10-PCS; principal; 2024-10-24 10:30)
PROC: 0DJD8ZZ Inspection of Lower Intestinal Tract, Via Natural or Artificial Opening Endoscopic (ICD-10-PCS; CPT 45378; 2024-10-24 10:30)
DX: K29.50 Unspecified chronic gastritis without bleeding (principal); D50.9 Iron deficiency anemia, unspecified; J44.9 Chronic obstructive pulmonary disease, unspecified; G47.30 Sleep apnea, unspecified; I25.10 Atherosclerotic heart disease of native coronary artery without angina pectoris; I50.9 Heart failure, unspecified; I11.0 Hypertensive heart disease with heart failure; E78.5 Hyperlipidemia, unspecified; E07.9 Disorder of thyroid, unspecified; K27.9 Peptic ulcer, site unspecified, unspecified as acute or chronic, without hemorrhage or perforation; F17.290 Nicotine dependence, other tobacco product, uncomplicated; E11.40 Type 2 diabetes mellitus with diabetic neuropathy, unspecified; Z79.899 Other long term (current) drug therapy; Z79.82 Long term (current) use of aspirin; Z79.02 Long term (current) use of antithrombotics/antiplatelets; Z79.890 Hormone replacement therapy; Z88.8 Allergy status to other drugs, medicaments and biological substances; Z88.2 Allergy status to sulfonamides; Z91.09 Other allergy status, other than to drugs and biological substances
CPT/HCPCS: 36415; 43239; 45378; 80048; 85025; 88305; J2704; J7030

== ENCOUNTER → 2024-11-13 12:46 | Outpatient (BNVA) | payer BC, SELFPAY | PROVIDERS: PCP Family Medicine; Visit Provider Specialist | DX: Z96.652 Presence of left artificial knee joint (principal); Z98.890 Other specified postprocedural states | CPT/HCPCS: 73560; 73565 ==